=== PATIENT | female | born 1950 | race Caucasian/White ===

== ENCOUNTER 2019-05-06 09:24 | Outpatient (CLI) | payer MEDICARE, OTHER, SELFPAY ==
--- NOTE | 2019-05-06 09:35 | US_ITS ---
WS: [id number] Abdomen ultrasound, 05/06/2019 Clinical Data: ANGIOMYOLIPOMA OF KIDNEY/HEPATIC CYST Comparison: None. Findings: The pancreas shows no cyst, pseudocyst or evidence of pancreatitis. The liver shows no cysts, masses or dilated intrahepatic ducts. The gallbladder has no stones or sludge. The wall measures 0.09 cm with no pericholecystic fluid. Th e common bile duct is 0.33 cm and no intraductal abnormalities are noted. The right kidney is 4.52 x 5.26 x 9.32 cm. There is a mass of the upper pole of the right kidney geoff uring 1.72 cm unchanged. It is of increased echogenicity and consistent with an angiomyolipoma. The left kidney is 4.28 x 4.44 x 9.52cm. No cysts, masses or hydronephrosis is seen. The abdominal aorta is not dilated and the inferior vena cava has normal flow. No vascular abnormalit ies are seen. The spleen measures 8.40 cm and there are no intrasplenic masses are capsular abnormalities. US/US abdomen complete* [id number] Impression: 1. Upper pole mass, 1.72 cm, of the right kidney consistent with angiomyolipoma unchanged. 2. The remainder the exam is unremarkable.
--- NOTE | 2019-05-06 10:20 | MM_ITS ---
WS: [id number] DIAGNOSTIC BILATERAL DIGITAL MAMMOGRAM WITH CAD HISTORY: HX OF BREAST CA COMPARISON: 04/23/2018 and 03/31/2017 TECHNIQUE: Bilateral craniocaudad, mediolateral oblique, and mediolateral views are submitted. Comput er aided detection utilized. Breast composition: There are scattered areas of fibroglandular density. Postsurgical scarring and vo lume loss superior RIGHT breast is stable. Linear area of thickening in the lateral LEFT breast is al so stable. No new mass or calcification. MM/[place] [id number] IMPRESSION: BI-RADS: 2-Benign FOLLOW UP: 1 Year Follow-up
== END 2019-05-06 09:25 | disposition home or self-care (01) ==
PROVIDERS: Family Provider Family Medicine; PCP Family Medicine; Visit Provider Family Medicine
DX: Z85.3 Personal history of malignant neoplasm of breast (principal); D30.00 Benign neoplasm of unspecified kidney; K76.89 Other specified diseases of liver
CPT/HCPCS: 76700; 77066

== ENCOUNTER 2020-05-08 10:19 | Outpatient (CLI) | payer MEDICARE, OTHER, SELFPAY ==
--- NOTE | 2020-05-08 10:29 | MM_ITS ---
WS: [id number] DIAGNOSTIC BILATERAL DIGITAL MAMMOGRAM WITH CAD HISTORY: HX OF BREAST CA COMPARISON: 05/06/2019, 04/23/2018, 03/31/2017 and 03/27/2016 TECHNIQUE: Bilateral craniocaudad, mediolateral oblique, and mediolateral views are submitted. Comput er aided detection utilized. Breast composition: There are scattered areas of fibroglandular density. Postsurgical changes and sca rring noted in the upper outer quadrant of the RIGHT breast towards the midline. No recurrent mass or distortion or progression of postsurgical changes. LEFT breast is negative. No mass or calcification . MM/[place] [id number] IMPRESSION: BI-RADS: 2-Benign FOLLOW UP: 1 Year Follow-up
== END 2020-05-08 10:20 | disposition home or self-care (01) ==
LOC: RADSHAW 10:25
PROVIDERS: PCP Family Medicine; Visit Provider Family Medicine
DX: Z85.3 Personal history of malignant neoplasm of breast (principal)
CPT/HCPCS: 77066

== ENCOUNTER 2021-05-27 13:07 | Outpatient (CLI) | payer MEDICARE, OTHER, SELFPAY ==
--- NOTE | 2021-05-27 13:19 | MM_ITS ---
WS: [email or web address] DIAGNOSTIC BILATERAL DIGITAL MAMMOGRAM WITH CAD HISTORY: HX OF BREAST CA COMPARISON: 05/08/2020, 05/06/2019 and 04/23/2018 TECHNIQUE: Bilateral craniocaudad, mediolateral oblique, and mediolateral views are submitted. Comput er aided detection utilized. Breast composition: There are scattered areas of fibroglandular density. Postsurgical changes upper o uter quadrant of the RIGHT breast. There is volume loss in the clip is noted posteriorly. The scar fo rmation increased soft tissue along the surgical site are stable. No new calcification or mass. MM/[place] [id number] IMPRESSION: BI-RADS: 2-Benign FOLLOW UP: 1 Year Follow-up
== END 2021-05-27 13:08 | disposition home or self-care (01) ==
LOC: RADSHAW 13:17
PROVIDERS: PCP Family Medicine; Visit Provider Family Medicine
DX: Z85.3 Personal history of malignant neoplasm of breast (principal)
CPT/HCPCS: 77066

== ENCOUNTER → 2021-09-13 14:30 | Outpatient (BNVA) | payer MEDICARE, OTHER, SELFPAY | PROVIDERS: PCP Family Medicine; Visit Provider Family Medicine | DX: Z00.00 Encounter for general adult medical examination without abnormal findings (principal); Z51.81 Encounter for therapeutic drug level monitoring; Z13.220 Encounter for screening for lipoid disorders; E55.9 Vitamin D deficiency, unspecified | CPT/HCPCS: 80053; 80061; 82306; 85025 ==

== ENCOUNTER 2021-12-23 14:35 | Outpatient (CLI) | payer MEDICARE, OTHER, SELFPAY ==
--- NOTE | 2021-12-23 14:56 | XR_ITS ---
WS: [email or web address] DEXA (DUAL ENERGY X-RAY ABSORPTIOMETRY) Bone mineral density was performed using a 51wan machine. HISTORY: OSTEOPENIA COMPARISON: 02/10/2018 Lumbar spine BMD (L1-L4): 0.969 g/cm2 T score: -1.8 Z score: 0.2 Total hip BMD: Left: 0.778 g/cm2. T score: -1.8 Z score: -0.1 Right: 0.733 g/cm2. T score: -2.2 Z score: -0.4 10 year probability of a major osteoporotic fracture is 36.1%. Compared to the prior study from 02/10/2018. Lumbar spine bone mineral density has decreased by 3.2%. Bilateral hips bone mineral density has decreased by 4.5%. XR/XR DEXA axial skeleton* [id number] IMPRESSION: OSTEOPENIA based upon the WHO classification for females. Significant decrease in bone mineral density within the hips and lumbar spine since the prior study.
== END 2021-12-23 14:36 | disposition home or self-care (01) ==
LOC: RAD 14:37
PROVIDERS: PCP Family Medicine; Visit Provider Family Medicine
DX: Z78.0 Asymptomatic menopausal state (principal); M85.80 Other specified disorders of bone density and structure, unspecified site
CPT/HCPCS: 77080

== ENCOUNTER → 2022-11-05 07:59 | Outpatient (BNVA) | payer MEDICARE, OTHER, SELFPAY | PROVIDERS: PCP Family Medicine; Visit Provider Family Medicine | DX: Z00.00 Encounter for general adult medical examination without abnormal findings (principal); E78.5 Hyperlipidemia, unspecified; Z51.81 Encounter for therapeutic drug level monitoring; Z13.220 Encounter for screening for lipoid disorders; E55.9 Vitamin D deficiency, unspecified | CPT/HCPCS: 80053; 80061; 82306; 85025 ==

== ENCOUNTER 2022-11-12 08:57 | Outpatient (CLI) | payer MEDICARE, OTHER, SELFPAY ==
--- NOTE | 2022-11-12 09:31 | MM_ITS ---
WS: [email or web address] VIEWS: MLO, CC, and ML views both breasts. 3D digital tomosynthesis is also included in this exam. Comparisons, 03/27/2016, 03/31/2017, 04/23/2018, 05/06/2019, 05/08/2020, and 05/27/2021. Findings: There was no sign of mass, architectural distortion or suspicious calcification in either breast. Sta ble postoperative changes in the upper outer quadrant of the right breast. There are scattered areas of fibroglandular density. MM/[place] [id number] Impression: BI-RADS: 2-Benign finding. FOLLOW-UP: 1 Year Follow-up This mammogram was also analyzed by the Computer Aided Detection System [employer].
== END 2022-11-12 08:58 | disposition home or self-care (01) ==
LOC: RAD 08:58
PROVIDERS: PCP Family Medicine; Visit Provider Family Medicine
DX: Z85.3 Personal history of malignant neoplasm of breast (principal)
CPT/HCPCS: 77062; G0279

== ENCOUNTER 2023-02-18 08:03 | Outpatient (CLI) | payer MEDICARE, OTHER, SELFPAY ==
--- NOTE | 2023-02-18 08:09 | XR_ITS ---
WS: [email or web address] Exam: XR toe RT min 2V [id number] Date/Time of Exam: 02/18/2023 8:23 AM Reason For Exam: Hit right pinky toe on chair The fifth toe is targeted for radiographic evaluation. There is a minimally displaced fracture of the distal end of the proximal phalanx of the fifth toe. A lignment should be adequate for healing. No other fractures. No dislocation. There is soft tissue swe lling of the fifth toe. IMPRESSION: 1. Fracture of the distal end of the proximal phalanx of the fifth toe without significant displaceme nt. Alignment appears to be satisfactory for healing.
--- NOTE | 2023-02-18 08:09 | XR_ITS ---
WS: [email or web address] Exam: XR foot RT min 3V* [id number] Date/Time of Exam: 02/18/2023 8:23 AM Reason For Exam: Hit right pinky toe on chair There is a fracture of the distal end of the proximal phalanx of the fifth toe. Minimal displacement noted. Alignment should be satisfactory for healing. There is soft tissue swelling. There are no othe r fractures of the RIGHT foot. Bunion deformity noted with marked DJD at the first MP joint. IMPRESSION: 1. Fracture of the proximal phalanx of the fifth toe with only minimal displacement. Alignment should be adequate for healing. Soft tissue swelling. 2. Bunion deformity with marked DJD at the first MP joint.
== END 2023-02-18 08:04 | disposition home or self-care (01) ==
LOC: RAD 08:06
PROVIDERS: PCP Family Medicine; Visit Provider Nurse Practitioner Family
DX: S92.511A Displaced fracture of proximal phalanx of right lesser toe(s), initial encounter for closed fracture (principal); W22.03XA Walked into furniture, initial encounter; M19.071 Primary osteoarthritis, right ankle and foot; M21.611 Bunion of right foot; M20.61 Acquired deformities of toe(s), unspecified, right foot
CPT/HCPCS: 73630; 73660

== ENCOUNTER 2023-03-30 13:45 | Outpatient (CLI) | payer MEDICARE, OTHER, SELFPAY ==
--- NOTE | 2023-03-30 13:47 | XRR_ITS ---
PROCEDURE INFORMATION: Exam: XR Right Foot Exam date and time: 03/30/2023 1:51 PM Age: 72 years old Clinical indication: Pain; Foot; Right; Additional info: Right 5th toe fracture TECHNIQUE: Imaging protocol: Radiologic exam of the right foot. Views: 1 or 2 views. COMPARISON: CR XR foot RT min 3V* [id number] 02/18/2023 8:24 AM FINDINGS: Bones/joints: Again is noted the fracture of the distal aspect of the 1st phalanx of the right 5th digit. Since the previous study, it has become more impacted and foreshortened. There is some bridging callus. There are small fragments that did not become incorporated into the healing and remain is free fragments. There are no new fractures. There are severe degenerative changes involving the 1st metatarsophalangeal joint and mild hallux valgus deformity here. Soft tissues: Normal. XR/XR foot RT 2V [id number] IMPRESSION: Healing fracture distal aspect 1st phalanx 5th toe which has become impacted and foreshortened since the previous study. There is some bridging callus. No new fracture
== END 2023-03-30 13:46 | disposition home or self-care (01) ==
LOC: RAD 13:45
PROVIDERS: PCP Family Medicine; Visit Provider Family Medicine
DX: S92.531D Displaced fracture of distal phalanx of right lesser toe(s), subsequent encounter for fracture with routine healing (principal); X58.XXXD Exposure to other specified factors, subsequent encounter
CPT/HCPCS: 73620

== ENCOUNTER → 2023-07-17 10:16 | Outpatient (BNVA) | payer MEDICARE, OTHER, SELFPAY | PROVIDERS: PCP Family Medicine; Visit Provider Family Medicine | DX: R21 Rash and other nonspecific skin eruption (principal) | CPT/HCPCS: 87070; 87252; 87255 ==

== ENCOUNTER → 2023-07-19 16:46 | Outpatient (BNVA) | payer MEDICARE, OTHER, SELFPAY | PROVIDERS: PCP Family Medicine; Visit Provider Emergency Medicine | DX: R07.89 Other chest pain (principal); I10 Essential (primary) hypertension | CPT/HCPCS: 93005 ==

== ENCOUNTER → 2023-07-30 12:19 | Outpatient (BNVA) | payer MEDICARE, OTHER, SELFPAY | PROVIDERS: PCP Family Medicine; Visit Provider Family Medicine | DX: Z20.2 Contact with and (suspected) exposure to infections with a predominantly sexual mode of transmission (principal); Z51.81 Encounter for therapeutic drug level monitoring | CPT/HCPCS: 80053; 85025; 86592; 87340; 87491; 87591 ==

== ENCOUNTER 2023-12-23 11:40 | Outpatient (CLI) | payer MEDICARE, OTHER, SELFPAY ==
--- NOTE | 2023-12-23 12:00 | MM_ITS ---
WS: [email or web address] DIAGNOSTIC BILATERAL DIGITAL BREAST TOMOSYNTHESIS MAMMOGRAPHY WITH CAD HISTORY: HX OF BREAST CA COMPARISON: 11/12/2022, 05/27/2021, 05/08/2020 TECHNIQUE: Bilateral craniocaudad, mediolateral oblique, and mediolateral views are submitted with to mosynthesis and SM. Computer aided detection utilized. Breast composition: There are scattered areas of fibroglandular density. Stable lumpectomy site in th e upper outer quadrant of the RIGHT breast with a dystrophic calcification. No new mass or suspicious calcification. No distortion. MM/[place] [id number] IMPRESSION: BI-RADS: 2-Benign FOLLOW UP: 1 Year Follow-up
== END 2023-12-23 11:41 | disposition home or self-care (01) ==
LOC: RAD 11:42
PROVIDERS: PCP Family Medicine; Visit Provider Family Medicine
DX: Z98.890 Other specified postprocedural states (principal); Z85.3 Personal history of malignant neoplasm of breast; R92.323 Mammographic fibroglandular density, bilateral breasts
CPT/HCPCS: 77062; G0279

== ENCOUNTER → 2024-10-21 11:24 | Outpatient (BNVA) | payer MEDICARE, OTHER, SELFPAY | PROVIDERS: PCP Family Medicine; Visit Provider Family Medicine | DX: Z00.00 Encounter for general adult medical examination without abnormal findings (principal); E53.8 Deficiency of other specified B group vitamins; Z51.81 Encounter for therapeutic drug level monitoring; E55.9 Vitamin D deficiency, unspecified; Z13.6 Encounter for screening for cardiovascular disorders | CPT/HCPCS: 80053; 80061; 82306; 82607; 83735; 85025 ==

== ENCOUNTER 2024-11-23 12:09 | Outpatient (CLI) | payer MEDICARE, OTHER, SELFPAY ==
--- NOTE | 2024-11-23 12:17 | MM_ITS ---
WS: [email or web address] BILATERAL 3D TOMOSYNTHESIS DIGITAL DIAGNOSTIC MAMMOGRAPHY WITH CAD CLINICAL INFORMATION: HX OF BREAST CA HISTORY: RIGHT breast cancer COMPARISON: 2023 TECHNIQUE: Bilateral CC, MLO, and ML views. FINDINGS: Scattered fibroglandular densities bilaterally. Treatment-related changes RIGHT breast. Stable parenchymal scarring. Stable calcification or surgical clip. No suspicious focal mass, asymmetry, calcifications, or architectural distortion. No evidence of malignancy. MM/MM diag tomosynthesis [id number] IMPRESSION: DENSITY: There are scattered areas of fibroglandular density. BI-RADS: 2 - Benign. FOLLOW UP: 1 Year Follow-up Recommend return to annual diagnostic mammography.
--- NOTE | 2024-11-23 13:00 | XR_ITS ---
WS: [email or web address] SCREENING DEXA SCAN [employer] CLINICAL INFORMATION: Osteopenia COMPARISON: 2021 FINDINGS: The L1-L4 bone mineral density measures 1.026 g/cm2. This corresponds to a T score score of -1.3 and Z score of 0.7. Left femoral neck bone mineral density measures 0.790 g/cm2. This corresponds to a T score of -1.7 and Z score of 0.2. Right femoral neck bone mineral density measures 0.764 g/cm2. This corresponds to a T score -1.9of and Z score of 0.0. Mean femoral neck bone mineral density measures 0.777 g/cm2. This corresponds to a T score of -1.8 and Z score of 0.1. XR/XR DEXA axial skeleton* [id number] IMPRESSION: Osteopenia lumbar spine. Osteopenia femoral necks. Patient's FRAX calculated 10 year probability for major osteoporotic fracture i s 39.1% and osteoporotic hip fracture is 24.8%. Bone density lumbar spine increased 5.9% Bone density femoral necks increased 2.8%
== END 2024-11-23 12:10 | disposition home or self-care (01) ==
LOC: RAD 12:10
PROVIDERS: PCP Family Medicine; Visit Provider Family Medicine
DX: Z85.3 Personal history of malignant neoplasm of breast (principal); Z78.0 Asymptomatic menopausal state; Z00.00 Encounter for general adult medical examination without abnormal findings; M85.88 Other specified disorders of bone density and structure, other site
CPT/HCPCS: 77062; 77080; G0279